=== PATIENT | female | born 1940 | race American Indian/Alaskan Native ===

== ENCOUNTER 2018-04-30 21:36 | Emergency (ER) | payer MEDICARE ==
[2018-04-30 21:51] VITALS: BP 98/50
--- NOTE | 2018-04-30 23:23 | Cat Scan Report ---
PROCEDURE: CT FACIAL BONES WO CON TECHNIQUE: Axial helical imaging through the face with sagittal and coronal reformatted images obtai agatha. HISTORY: fall with nose injury epistaxis and swelling COMPARISONS: None FINDINGS: There is a mildly displaced fracture of the left nasal bone. There is a displaced and possibly comminuted fracture of the nasal septum. There is opacification of the right nasal cavity in the region of the fracture that may represent blo od products. There is partial opacification of the right ethmoid air cells and moderate mucosal thickening of the sphenoid sinus on the right in the right maxillary sinus. The orbital contents are unremarkable. The visualized portion of the cervical spine is notable for cervical spondylosis with multilevel katharine l and foraminal stenosis secondary to spondylotic change. IMPRESSION: 1. Displaced fractures of the left nasal bone and of the nasal septum. 2. Opacification right nasal cavity which may represent blood products. 3. Right maxillary and sphenoid sinus disease which may represent pre-existing sinusitis. 4. Spondylitic change cervical spine. This document is electronically signed by Gabriela Peñaloza MD., April 30 2018 11:21:37 PM ET
--- NOTE | 2018-05-01 00:05 | Emergency Department Report ---
ED Head Trauma HPI - General Chief complaint: Fall Stated complaint: FALL Time Seen by Provider: 04/30/18 22:33 Source: EMS Mode of arrival: Stretcher Limitations: No Limitations - History of Present Illness Initial comments: Patient is a 78-year-old female who was moving a box at home and she tripped and fell and hit her nose. There is no loss of consciousness she has not headache. Patient states there was some bleeding from nose which is now resolved. Patient states pain is 4 out of 10 in severity as a alice pain. Patient has no other complaints this time. - Related Data Previous Rx's Medication Instructions Recorded Last Taken Type Clindamycin [Clindamycin CAP] 300 mg PO Q8H #21 cap 05/01/18 Unknown Rx Oxymetazoline 0.05% [Afrin] 2 spray NS BID 3 Days #1 bottle 05/01/18 Unknown Rx traMADol [Ultram] 50 mg PO Q6HR PRN #12 tablet 05/01/18 Unknown Rx ED Review of Systems ROS: Stated complaint: FALL Other details as noted in HPI Comment: All other systems reviewed and negative ED Past Medical Hx - Past Medical History Previous Medical History?: Yes Hx Psychiatric Treatment: Yes (depression) Hx COPD: Yes Additional medical history: crohns - Surgical History Past Surgical History?: No - Social History Smoking Status: Unknown if ever smoked - Medications Home Medications: Home Medications Medication Instructions Recorded Confirmed Last Taken Type Clindamycin [Clindamycin CAP] 300 mg PO Q8H #21 cap 05/01/18 Unknown Rx Oxymetazoline 0.05% [Afrin] 2 spray NS BID 3 Days #1 bottle 05/01/18 Unknown Rx traMADol [Ultram] 50 mg PO Q6HR PRN #12 tablet 05/01/18 Unknown Rx ED Physical Exam - General Limitations: No Limitations General appearance: alert, in no apparent distress - Head Head exam: Present: atraumatic, normocephalic - Eye Eye exam: Present: normal appearance - ENT ENT exam: Present: normal orophraynx, mucous membranes moist, other (patient with abrasion to the bridge of the nose. Patient has some dried blood in bilateral nostrils but no active bleeding at this time. Patient has some tenderness with palpation. Is also some swelling) - Neck Neck exam: Present: normal inspection - Respiratory Respiratory exam: Present: normal lung sounds bilaterally. Absent: respiratory distress, wheezes, rales, rhonchi - Cardiovascular Cardiovascular Exam: Present: regular rate, normal rhythm. Absent: systolic murmur, diastolic murmur, rubs, gallop - GI/Abdominal GI/Abdominal exam: Present: soft, normal bowel sounds - Extremities Exam Extremities exam: Present: normal inspection - Back Exam Back exam: Present: normal inspection - Neurological Exam Neurological exam: Present: alert, oriented X3 - Psychiatric Psychiatric exam: Present: normal affect, normal mood - Skin Skin exam: Present: warm, dry, intact, normal color. Absent: rash ED Course Vital Signs 04/30/18 04/30/18 21:48 22:42 Temperature 97.8 F Pulse Rate 86 Respiratory 18 18 Rate Blood Pressure 98/50 O2 Sat by Pulse 97 98 Oximetry - Radiology Data Patient has a displaced fracture to the left nasal bone and of the nasal septum. Opacification of the right nasal cavity which likely is blood products. Critical care attestation.: If time is entered above; I have spent that time in minutes in the direct care of this critically ill patient, excluding procedure time. ED Disposition Clinical Impression: Nasal bone fracture Qualifiers: Encounter type: initial encounter Fracture type: open Qualified Code(s): S02.2XXB - Fracture of nasal bones, initial encounter for open fracture Disposition: DC-01 TO HOME OR SELFCARE Is pt being admited?: No Does the pt Need Aspirin: No Condition: Stable Instructions: Nasal Fracture (ED) Referrals: QUINCY AMBRIZ MD [Staff Physician] - 3-5 Days Time of Disposition: 00:05
== END 2018-05-01 06:32 | disposition home or self-care (01) ==
LOC: ED 21:36
DX: S02.2XXB Fracture of nasal bones, initial encounter for open fracture (principal); J44.9 Chronic obstructive pulmonary disease, unspecified; W01.198A Fall on same level from slipping, tripping and stumbling with subsequent striking against other object, initial encounter; Y93.89 Activity, other specified; Y92.89 Other specified places as the place of occurrence of the external cause; Y99.8 Other external cause status
CPT/HCPCS: 70486; 99283

== ENCOUNTER 2018-05-07 09:34 | Emergency (ER) | payer MEDICARE ==
[2018-05-07] MEDS ORDERED: PEPCID IV ONE (11:00)
[2018-05-07] MEDS ORDERED: NACL 0.9% 250ML 250 ML IV ONE (11:00)
[2018-05-07] MEDS ORDERED: SUBLIMAZE IV ONE (11:00)
--- NOTE | 2018-05-07 11:02 | Emergency Department Report ---
ED General Adult HPI - General Chief complaint: Abdominal Pain Stated complaint: ABDOMINAL PAIN Time Seen by Provider: 05/07/18 10:28 Source: patient, EMS (ems notes not available at time of chart dictation), RN notes reviewed Mode of arrival: Stretcher Limitations: No Limitations - History of Present Illness Initial comments: This is a 78-year-old female. The patient reports that her primary care doctor is [facility], and that her primary care doctor is in [facility]. Her past medical history includes psychiatric disease and reported Crohn's disease. 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 She also may have a history of reactive airway disease, and possible iron deficiency anemia. It appears that she takes iron sulfate currently. The patient reports that she lives in a personal fpc, custodial, and that if she needs to go to an appointment, an ambulance is set up, or her daughter takes her for her appointments. She presents to the emergency room with a complaint of lower abdominal pain and constipation. She reports that she was having "diarrhea", and her personal fpc gave her diarrhea medication, which "dried me up." The patient denies headache, neck pain, chest pain, shortness of breath, urinary symptoms. Denies vomiting at this time. Abdominal pain is described as cramping, does not radiate anywhere, is in the lower abdominal region, and increases with palpation, and decreases with rest. She also endorses chronic lower extremity swelling on review of systems, which is neither new, worsened or different. She denies DVT, pulmonary embolus risk factors. -: Gradual, days(s) Radiation: abdomen Severity scale (0 -10): 5 Quality: aching Consistency: intermittent Improves with: rest Worsens with: movement - Related Data Previous Rx's Medication Instructions Recorded Last Taken Type Clindamycin [Clindamycin CAP] 300 mg PO Q8H #21 cap 05/01/18 Unknown Rx Oxymetazoline 0.05% [Afrin] 2 spray NS BID 3 Days #1 bottle 05/01/18 Unknown Rx traMADol [Ultram] 50 mg PO Q6HR PRN #12 tablet 05/01/18 Unknown Rx Nitrofurantoin [place]/M-Cryst 100 mg PO Q12HR #14 capsule 05/07/18 Unknown Rx [Macrobid CAP] Polyethylene Glycol 3350 [Miralax 17 gm PO BID #60 packet 05/07/18 Unknown Rx 3350] Allergies Allergy/AdvReac Type Severity Reaction Status Date / Time No Known Allergies Allergy Verified 05/07/18 15:12 ED Review of Systems ROS: Stated complaint: ABDOMINAL PAIN Other details as noted in HPI Constitutional: denies: fever, malaise Eyes: denies: vision change ENT: denies: epistaxis Respiratory: denies: cough, shortness of breath, SOB with exertion, SOB at rest Cardiovascular: denies: chest pain Gastrointestinal: abdominal pain, constipation. denies: vomiting, hematemesis, melena, hematochezia Genitourinary: denies: dysuria, frequency, hematuria, discharge Musculoskeletal: other (chronic lower extremity swelling). denies: back pain Skin: denies: lesions Neurological: denies: weakness Psychiatric: denies: anxiety ED Past Medical Hx - Past Medical History Hx Psychiatric Treatment: Yes (depression) Hx COPD: Yes Additional medical history: crohns - Social History Smoking Status: Never Smoker Substance Use Type: None - Medications Home Medications: Home Medications Medication Instructions Recorded Confirmed Last Taken Type Clindamycin [Clindamycin CAP] 300 mg PO Q8H #21 cap 05/01/18 Unknown Rx Oxymetazoline 0.05% [Afrin] 2 spray NS BID 3 Days #1 bottle 05/01/18 Unknown Rx traMADol [Ultram] 50 mg PO Q6HR PRN #12 tablet 05/01/18 Unknown Rx Nitrofurantoin [place]/M-Cryst 100 mg PO Q12HR #14 capsule 05/07/18 Unknown Rx [Macrobid CAP] Polyethylene Glycol 3350 [Miralax 17 gm PO BID #60 packet 05/07/18 Unknown Rx 3350] ED Physical Exam - General Limitations: No Limitations General appearance: alert, in no apparent distress - Head Head exam: Present: atraumatic, normocephalic - Eye Eye exam: Present: normal appearance, EOMI. Absent: nystagmus - ENT ENT exam: Present: normal exam, normal orophraynx, mucous membranes moist, no rmal external ear exam - Neck Neck exam: Present: normal inspection, full ROM. Absent: tenderness, meningismus - Respiratory Respiratory exam: Present: normal lung sounds bilaterally. Absent: respiratory distress - Cardiovascular Cardiovascular Exam: Present: regular rate, normal rhythm, normal heart sounds. Absent: bradycardia, tachycardia, irregular rhythm, systolic murmur, diastolic murmur, rubs, gallop - GI/Abdominal GI/Abdominal exam: Present: soft, tenderness, other (there is suprapubic and left lower quadrant tenderness. No rebound, guarding or peritoneal signs.). Absent: distended, guarding, rebound, rigid, pulsatile mass - Rectal Rectal exam: Present: normal inspection, normal rectal tone, heme (+) stool, fecal impaction, other (chaperoned by nurse Marck jiménez.). Absent: black stool, bloody stool, hemorrhoids, mass, tenderness - Extremities Exam Extremities exam: Present: normal inspection, full ROM, pedal edema, other (2+ pulses noted in the bilateral upper, lower extremities. Compartments soft. No long bony tenderness. The pelvis is stable.). Absent: calf tenderness - Back Exam Back exam: Present: normal inspection, full ROM. Absent: tenderness, CVA tenderness (R), paraspinal tenderness, vertebral tenderness - Neurological Exam Neurological exam: Present: alert, normal gait, other (Extraocular movements intact. Tongue midline. No facial droop. Facial sensation intact to light touch in the V1, V2, V3 distribution bilaterally. 5 and 5 strength in 4 extremities.. Sensation is intact to light touch in 4 extremities.). Absent: motor sensory deficit - Psychiatric Psychiatric exam: Present: flat affect - Skin Skin exam: Present: warm, dry, intact, normal color. Absent: rash ED Course Vital Signs 05/07/18 10:07 Temperature 98.3 F Pulse Rate 89 Respiratory 16 Rate Blood Pressure 135/75 O2 Sat by Pulse 97 Oximetry - Reevaluation(s) Reevaluation #1: 05/07/18 16:31 Belly soft on repeat examination. Patient had a large bowel movement after soapsuds enema. She reports that she feels markedly improved. She is requesting to eat. She is suitable to be discharged with outpatient follow-up. ED Medical Decision Making - Lab Data Result diagrams: 05/07/18 11:42 05/07/18 11:42 Vital Signs 05/07/18 10:07 Temperature 98.3 F Pulse Rate 89 Respiratory 16 Rate Blood Pressure 135/75 O2 Sat by Pulse 97 Oximetry Lab Results 05/07/18 05/07/18 05/07/18 Range/Units 11:42 11:42 11:42 WBC 9.1 (4.5-11.0) K/mm3 RBC 3.08 L (3.65-5.03) M/mm3 Hgb 9.7 L (10.1-14.3) gm/dl Hct 29.6 L (30.3-42.9) % MCV 96 (79-97) fl MCH 31 (28-32) pg MCHC 33 (30-34) % RDW 15.0 (13.2-15.2) % Plt Count 382 (140-440) K/mm3 Lymph % (Auto) 14.1 (13.4-35.0) % [place] % (Auto) 7.7 H (0.0-7.3) % Eos % (Auto) 0.5 (0.0-4.3) % Baso % (Auto) 0.3 (0.0-1.8) % Lymph # 1.3 (1.2-5.4) K/mm3 [place] # 0.7 (0.0-0.8) K/mm3 Eos # 0.0 (0.0-0.4) K/mm3 Baso # 0.0 (0.0-0.1) K/mm3 Seg Neutrophils % 77.4 H (40.0-70.0) % Seg Neutrophils # 7.0 (1.8-7.7) K/mm3 PT 13.2 (12.2-14.9) Sec. INR 0.95 (0.87-1.13) APTT 26.6 (24.2-36.6) Sec. Sodium 139 (137-145) mmol/L Potassium 4.7 (3.6-5.0) mmol/L Chloride 101.9 (98-107) mmol/L Carbon Dioxide 21 L (22-30) mmol/L Anion Gap 21 mmol/L BUN 27 H (7-17) mg/dL Creatinine 1.5 H (0.7-1.2) mg/dL Estimated GFR 41 ml/min BUN/Creatinine Ratio 18 % Glucose 80 (65-100) mg/dL Lactic Acid (0.7-2.0) mmol/L Calcium 9.5 (8.4-10.2) mg/dL Magnesium (1.7-2.3) mg/dL Total Bilirubin 0.50 (0.1-1.2) mg/dL AST 11 (5-40) units/L ALT 14 (7-56) units/L Alkaline Phosphatase 78 (35-129) units/L Total Creatine Kinase (30-135) units/L Total Protein 6.6 (6.3-8.2) g/dL Albumin 4.0 (3.9-5) g/dL Albumin/Globulin Ratio 1.5 % Lipase 14 (13-60) units/L Urine Color (Yellow) Urine Turbidity (Clear) Urine pH (5.0-7.0) Ur Specific [place] (1.003-1.030) Urine Protein (Negative) mg/dL Urine Glucose (UA) (Negative) mg/dL Urine Ketones (Negative) mg/dL Urine Blood (Negative) Urine Nitrite (Negative) Urine Bilirubin (Negative) Urine Urobilinogen (<2.0) mg/dL Ur Leukocyte Esterase (Negative) Urine WBC (Auto) (0.0-6.0) /HPF Urine RBC (Auto) (0.0-6.0) /HPF U Epithel Cells (Auto) (0-13.0) /HPF Urine Bacteria (Auto) (Negative) /HPF Urine Mucus /HPF Blood Type Antibody Screen 05/07/18 05/07/18 05/07/18 Range/Units 11:42 11:42 11:44 WBC (4.5-11.0) K/mm3 RBC (3.65-5.03) M/mm3 Hgb (10.1-14.3) gm/dl Hct (30.3-42.9) % MCV (79-97) fl MCH (28-32) pg MCHC (30-34) % RDW (13.2-15.2) % Plt Count (140-440) K/mm3 Lymph % (Auto) (13.4-35.0) % [place] % (Auto) (0.0-7.3) % Eos % (Auto) (0.0-4.3) % Baso % (Auto) (0.0-1.8) % Lymph # (1.2-5.4) K/mm3 [place] # (0.0-0.8) K/mm3 Eos # (0.0-0.4) K/mm3 Baso # (0.0-0.1) K/mm3 Seg Neutrophils % (40.0-70.0) % Seg Neutrophils # (1.8-7.7) K/mm3 PT (12.2-14.9) Sec. INR (0.87-1.13) APTT (24.2-36.6) Sec. Sodium (137-145) mmol/L Potassium (3.6-5.0) mmol/L Chloride (98-107) mmol/L Carbon Dioxide (22-30) mmol/L Anion Gap mmol/L BUN (7-17) mg/dL Creatinine (0.7-1.2) mg/dL Estimated GFR ml/min BUN/Creatinine Ratio % Glucose (65-100) mg/dL Lactic Acid 1.10 (0.7-2.0) mmol/L Calcium (8.4-10.2) mg/dL Magnesium 2.10 (1.7-2.3) mg/dL Total Bilirubin (0.1-1.2) mg/dL AST (5-40) units/L ALT (7-56) units/L Alkaline Phosphatase (35-129) units/L Total Creatine Kinase 106 (30-135) units/L Total Protein (6.3-8.2) g/dL Albumin (3.9-5) g/dL Albumin/Globulin Ratio % Lipase (13-60) units/L Urine Color Yellow (Yellow) Urine Turbidity Cloudy (Clear) Urine pH 5.0 (5.0-7.0) Ur Specific [place] 1.011 (1.003-1.030) Urine Protein <15 mg/dl (Negative) mg/dL Urine Glucose (UA) Neg (Negative) mg/dL Urine Ketones Tr (Negative) mg/dL Urine Blood Sm (Negative) Urine Nitrite Pos (Negative) Urine Bilirubin Neg (Negative) Urine Urobilinogen < 2.0 (<2.0) mg/dL Ur Leukocyte Esterase Mod (Negative) Urine WBC (Auto) 84.0 H (0.0-6.0) /HPF Urine RBC (Auto) 6.0 (0.0-6.0) /HPF U Epithel Cells (Auto) 3.0 (0-13.0) /HPF Urine Bacteria (Auto) 4+ (Negative) /HPF Urine Mucus Few /HPF Blood Type Antibody Screen 05/07/18 Range/Units 14:09 WBC (4.5-11.0) K/mm3 RBC (3.65-5.03) M/mm3 Hgb (10.1-14.3) gm/dl Hct (30.3-42.9) % MCV (79-97) fl MCH (28-32) pg MCHC (30-34) % RDW (13.2-15.2) % Plt Count (140-440) K/mm3 Lymph % (Auto) (13.4-35.0) % [place] % (Auto) (0.0-7.3) % Eos % (Auto) (0.0-4.3) % Baso % (Auto) (0.0-1.8) % Lymph # (1.2-5.4) K/mm3 [place] # (0.0-0.8) K/mm3 Eos # (0.0-0.4) K/mm3 Baso # (0.0-0.1) K/mm3 Seg Neutrophils % (40.0-70.0) % Seg Neutrophils # (1.8-7.7) K/mm3 PT (12.2-14.9) Sec. INR (0.87-1.13) APTT (24.2-36.6) Sec. Sodium (137-145) mmol/L Potassium (3.6-5.0) mmol/L Chloride (98-107) mmol/L Carbon Dioxide (22-30) mmol/L Anion Gap mmol/L BUN (7-17) mg/dL Creatinine (0.7-1.2) mg/dL Estimated GFR ml/min BUN/Creatinine Ratio % Glucose (65-100) mg/dL Lactic Acid (0.7-2.0) mmol/L Calcium (8.4-10.2) mg/dL Magnesium (1.7-2.3) mg/dL Total Bilirubin (0.1-1.2) mg/dL AST (5-40) units/L ALT (7-56) units/L Alkaline Phosphatase (35-129) units/L Total Creatine Kinase (30-135) units/L Total Protein (6.3-8.2) g/dL Albumin (3.9-5) g/dL Albumin/Globulin Ratio % Lipase (13-60) units/L Urine Color (Yellow) Urine Turbidity (Clear) Urine pH (5.0-7.0) Ur Specific [place] (1.003-1.030) Urine Protein (Negative) mg/dL Urine Glucose (UA) (Negative) mg/dL Urine Ketones (Negative) mg/dL Urine Blood (Negative) Urine Nitrite (Negative) Urine Bilirubin (Negative) Urine Urobilinogen (<2.0) mg/dL Ur Leukocyte Esterase (Negative) Urine WBC (Auto) (0.0-6.0) /HPF Urine RBC (Auto) (0.0-6.0) /HPF U Epithel Cells (Auto) (0-13.0) /HPF Urine Bacteria (Auto) (Negative) /HPF Urine Mucus /HPF Blood Type O POSITIVE Antibody Screen Negative - EKG Data -: EKG Interpreted by Ny EKG shows normal: sinus rhythm Rate: normal - EKG Data 05/07/18 14:57 This is a normal sinus rhythm, 91 bpm, normal axis, QTC 441 ms, poor R progression, not having chest pain, this is an abnormal EKG, this is not consistent with ST elevation myocardial infarction. - Radiology Data Radiology results: report reviewed, image reviewed CT scan of the abdomen and pelvis suggests fecal impaction and constipation. X-ray of the chest, abdomen, pelvis negative for acute or significant findings. - Medical Decision Making Differential diagnosis, including but not limited to: Constipation, obstruction, fecal impaction, urinary tract infection Assessment and plan: 78-year-old female with probable constipation and fecal impaction after presumably being given antidiarrheal medications at her facility. Patient is afebrile with reassuring vital signs, and hemodynamically stable 4 hours. She has a mild anemia, normocytic, trace guaiac positive stool, and is currently on iron sulfate supplementation. Nursing team will administer soapsuds enema. Has incidental probable urinary tract infection, and mild renal insufficiency. The patient does not meet criteria for inpatient hospitalization or admission at this time. She can follow up with an outpatient primary care doctor for her renal insufficiency, urinary tract infection, and normocytic anemia. Case management consult has been requested to facilitate outpatient transportation to outpatient gastroenterology follow-up. Discussed the patient's findings and laboratory studies and physical exam findings with GI hospital receptionist, Dr. Carey, who agreed the patient did not meet criteria for admission for emergency colon oscopy. Her group is amenable to following the patient up as an outpatient. Critical care attestation.: If time is entered above; I have spent that time in minutes in the direct care of this critically ill patient, excluding procedure time. ED Disposition Clinical Impression: Constipation, Renal insufficiency, Bacteria in urine Disposition: DC/TX-70 ANOTHER TYPE HLTHCARE Is pt being admited?: No Does the pt Need Aspirin: No Condition: Good Instructions: Abdominal Pain (ED) Additional Instructions: Cultures were sent today, and results will be available in the next 3-5 days. Please have a primary care doctor contact the medical records department to obtain culture results. Recommend the patient not receive any antidiarrheal medication. Patient should drink for 6 cups of water per day, and consume plenty of fruits, fibers, vegetables. Patient found to have constipation in the emergency room, and symptoms of constipation typically take 4-6 weeks to resolve. The patient should follow up with a gastroenterology specialist within the next 4-6 weeks for consideration for outpatient colonoscopy, not following up as recommended they resulted undiagnosed cancer, tumor, malignancy. Since should avoid taking Motrin, ibuprofen, Naprosyn, Aleve, laboratory studies incidentally demonstrated mild decrease, impairment in renal function. Patient also found to have a mild anemia. The patient should follow-up with a primary care doctor within the next month for her anemia, and renal insufficiency. The patient may alternatively follow up with an outpatient public safety director within the next month for her renal insufficiency. Please return to the emergency room right away or projectile vomiting, change in mental status, confusion, new, worsening or different symptoms, or symptoms not present on the initial ER evaluation. Prescriptions: Nitrofurantoin [place]/M-Cryst [Macrobid CAP] 100 mg PO Q12HR #14 capsule Polyethylene Glycol 3350 [Miralax 3350] 17 gm PO BID #60 packet Referrals: [facility] [Provider Group] - 3-5 Days TAMARA TAYLOR MD [Staff Physician] - 7-10 days DARCIE CAREY MD [Staff Physician] - 7-10 days
--- NOTE | 2018-05-07 11:25 | XRay Report ---
ABDOMINAL SERIES: History: Abdominal pain. Supine and upright views of the abdomen and frontal view of the chest are submitted. There is gas mixed with moderate stool throughout the colon. There are no dilated loops of bowel or air-fluid levels. There is no free intraperitoneal gas. Single view of the chest demonstrates mild cardiomegaly and moderate to large hiatal hernia. The lungs are clear. IMPRESSION: Constipation. Mild cardiomegaly. Hiatal hernia.
[2018-05-07 11:59] LABS: Bacteria,Urine 4+ /HPF (Negative); Bilirubin,Urine NEG (Negative); Blood,Urine SM (Negative); Color,Urine Yellow (Yellow); Mucus,Urine FEW /HPF; Protein,Urine <15 mg/dL mg/dL (Negative); Urobilinogen,Urine < 2.0 mg/dL (<2.0)
[2018-05-07 12:05] LABS: Basophils % (Auto) 0.3 % (0.0-1.8); Eosinophils % (Auto) 0.5 % (0.0-4.3); Hematocrit 29.6 % (30.3-42.9); Hemoglobin 9.7 gm/dl (10.1-14.3); Lymphocytes # (Auto) 1.3 K/mm3 (1.2-5.4); Lymphocytes % (Auto) 14.1 % (13.4-35.0); Mean Corpuscular HGB Conc 33 % (30-34); Mean Corpuscular Volume 96 fl (79-97); Monocytes # (Auto) 0.7 K/mm3 (0.0-0.8); Monocytes % (Auto) 7.7 % (0.0-7.3); Platelet Count 382 K/mm3 (140-440); Red Blood Count 3.08 M/mm3 (3.65-5.03)
[2018-05-07 12:16] LABS: INR 0.95 (0.87-1.13); Partial Thromboplastin Time 26.6 Sec. (24.2-36.6)
[2018-05-07 12:36] LABS: Calcium 9.5 mg/dL (8.4-10.2)
--- NOTE | 2018-05-07 13:31 | Cat Scan Report ---
CT ABDOMEN PELVIS WITHOUT CONTRAST: HISTORY: Lower abdominal pain. COMPARISON: none. TECHNIQUE: Helical CT in 1.25mm intervals without IV contrast. Sagittal and coronal reconstructions. FINDINGS: Lung bases: A large hiatal hernia is identified. The visualized lung bases are clear. Normal heart size. Liver: There are several liver cysts measuring up to 3 cm. No enlargement, advanced parenchymal disease or obvious mass. Biliary system: Unremarkable. Pancreas: Normal. Spleen: The spleen is normal size measuring 9 cm. A 2.7 cm splenic cyst is noted. Kidneys/ureters/bladder: Within normal limits. There are a few scattered renal cysts. No mass, nephrolithiasis or obstruction. The renal collecting systems and bladder are unremarkable. Adrenal glands: Normal. Aorta: Normal. Intestines: There is a very large amount of stool in the left hemicolon and rectum. Fecal impaction should be considered. The remaining bowel loops are unremarkable. Appendix: Not confidently identified. Pelvic viscera: Normal. Ascites: None. Adenopathy: None. Musculoskeletal: Bony structures are demineralized with multilevel degenerative disc disease in the visualized spine. IMPRESSION: Severe constipation. Large hiatal hernia. Scattered liver and renal cysts. Osteopenia and degenerative changes in the spine.
[2018-05-07] MEDS ORDERED: MACROBID PO ONE (13:50)
[2018-05-07 16:51] VITALS: BP 112/60
[2018-05-07] MEDS ORDERED: TYLENOL PO ONE (17:19)
[2018-05-07] MEDS ORDERED: PERCOCET 5/325 PO ONE (18:06)
== END 2018-05-07 19:30 | disposition other institution (70) ==
LOC: ED 09:34
DX: J44.9 Chronic obstructive pulmonary disease, unspecified (principal); R82.71 Bacteriuria; N28.9 Disorder of kidney and ureter, unspecified; K59.00 Constipation, unspecified; F32.9 Major depressive disorder, single episode, unspecified; K50.90 Crohn's disease, unspecified, without complications
CPT/HCPCS: 36415; 74022; 74176; 80053; 81001; 82140; 82271; 82550; 83690; 83735; 85025; 85610; 85730; 86850; 86900; 86901; 87086; 93005; 93010; 96361; 96374; 96375; 99285; J3010; J7050